=== PATIENT | female | born 1950 | race Caucasian/White ===

== ENCOUNTER 2021-06-01 18:04 | Emergency (ER) | payer MEDICARE ==
[~2021-06-01 18:04] MED LIST: NORVASC10 MG PO
[2021-06-01] MEDS ORDERED: BACTROBAN OINT22 GM EXT (20:00)
[2021-06-01] MEDS ORDERED: CEPHALEXIN500 M1 PO (20:00)
== END 2021-06-01 20:17 | disposition home or self-care (01) ==
LOC: ER1 18:04
DX: S61.241A Puncture wound with foreign body of left index finger without damage to nail, initial encounter (principal); I10 Essential (primary) hypertension; Z90.49 Acquired absence of other specified parts of digestive tract; W26.8XXA Contact with other sharp object(s), not elsewhere classified, initial encounter; W45.8XXA Other foreign body or object entering through skin, initial encounter
CPT/HCPCS: 73130; 99283

== ENCOUNTER → 2021-06-05 | Outpatient (CLI) | payer MEDICARE ==
[~2021-06-05] MED LIST changes: +BACTROBAN OINT22 GM EXT; +CEPHALEXIN500 M1 PO
== END ==
LOC: KOH-I 14:00
DX: F17.210 Nicotine dependence, cigarettes, uncomplicated (principal); R91.8 Other nonspecific abnormal finding of lung field
CPT/HCPCS: 71271

== ENCOUNTER → 2021-06-09 | Outpatient (CLI) | payer MEDICARE | LOC: MAMO 08:17 → EXRD 08:30 → MAMO 09:30 | DX: Z12.31 Encounter for screening mammogram for malignant neoplasm of breast (principal); M81.0 Age-related osteoporosis without current pathological fracture | CPT/HCPCS: 77063; 77067 ==

== ENCOUNTER 2022-01-19 13:59 | Observation (INO) | payer MEDICARE ==
[~2022-01-19] VITALS: Ht 160 cm; Wt 50.3 kg
[2022-01-19 15:26] LABS: RED BLOOD COUNT 4.68 M/UL (4.00-5.10); WHITE BLOOD COUNT 5.9 K/UL (4.5-11.0)
[2022-01-19 16:04] LABS: BUN/CREATININE RATIO 17 (0-10)
--- NOTE | 2022-01-19 23:41 | NUR ---
PT COMPLAINING OF CHEST PRESSURE AND BACK PRESSURE SHE ALSO ASKED FOR A MELATONIN. VITALS ARE [id number] SULLIVAN AND ORDERS OBTAINED.
[2022-01-20 02:10] LABS: HEMOGLOBIN 14.2 gm/dl (12.3-15.3); RED BLOOD COUNT 4.78 M/UL (4.00-5.10); WHITE BLOOD COUNT 6.5 K/UL (4.5-11.0)
[2022-01-20 02:28] LABS: BUN/CREATININE RATIO 21 (0-10)
[2022-01-20] MEDS ORDERED: ZESTRIL5 MG PO (09:51)
[2022-01-20] MEDS ORDERED: PROAIR HFA8.5 GM INH (09:51)
[2022-01-20] MEDS ORDERED: DITROPAN XL5 MG PO (09:52)
[2022-01-20] MEDS ORDERED: MIRTAZAPINE15 MG PO (09:52)
[2022-01-20] MEDS ORDERED: ASPIRIN EC81 MG PO (17:16)
[2022-01-20] MEDS ORDERED: CARVEDILOL3.125 MG PO (17:16)
[2022-01-20] MEDS ORDERED: LIPITOR20 MG PO (17:16)
== END 2022-01-20 17:49 | disposition home or self-care (01) ==
LOC: ER1 13:59 → CDU 18:40 → PROG CARE 18:40
PROVIDERS: Internal Medicine; Student in an Organized Health Care Education/Training Program; ADMIT Internal Medicine
DX: R07.89 Other chest pain (principal); Z20.822 Contact with and (suspected) exposure to COVID-19; I10 Essential (primary) hypertension; J96.91 Respiratory failure, unspecified with hypoxia; R94.31 Abnormal electrocardiogram [ECG] [EKG]; K21.9 Gastro-esophageal reflux disease without esophagitis; F41.9 Anxiety disorder, unspecified; F17.210 Nicotine dependence, cigarettes, uncomplicated; Z79.899 Other long term (current) drug therapy; Z96.643 Presence of artificial hip joint, bilateral
CPT/HCPCS: ECHO; 36415; 71045; 78452; 80048; 80053; 80061; 80076; 82550; 82553; 83690; 83735; 83880; 84443; 84484; 85025; 85027; 85610; 85730; 93005; 93017; 93306; 96375; 99285; A9502; G0378; J1644; J2405; J2785; U0002